=== PATIENT | female | born 1985 | race Caucasian/White ===

== ENCOUNTER 2023-04-23 10:49 | Emergency (ER) | payer OTHER ==
[2023-04-23 10:53] VITALS: BMI 24.4
[2023-04-23] MEDS ORDERED: ADENOSINE 6 MG/2 ML VIAL IVPUSH ONE ×2 (11:03→11:20)
[2023-04-23] MEDS ORDERED: SODIUM CHLORIDE 0.9% 500 ML INFUS.BAG IV ONE (11:17)
[2023-04-23 13:29] LABS: BASO % 0.8 % (0-2.0); EOS % 0.9 % (0-4.5); HEMATOCRIT 43.3 % (32.4-45.2); HEMOGLOBIN 14.5 GM/dL (10.7-15.3); LYMPH % 42.4 % (8-40); MCH 31.9 pg (25.7-33.7); MCHC 33.4 g/dl (32.0-36.0); MEAN CELL VOLUME 95.4 fl (80-96); MEAN PLT VOLUME 11.3 fl (7.5-11.1); NEUT % 47.9 % (42.8-82.8); PLATELET COUNT 236 10^3/uL (134-434); RBC 4.54 M/mm3 (3.60-5.2); RDW 13.1 % (11.6-15.6); WHITE BLOOD COUNT 6.6 K/mm3 (4.0-10.0)
[2023-04-23] MEDS ORDERED: metoPROLOL SUCCINATE 25 MG TAB.SR.24H (FP) PO ONE ×2 (13:49→13:59)
[2023-04-23 13:54] LABS: POTASSIUM 4.3 mmol/L (3.5-5.1)
[2023-04-23 13:55] LABS: CALCIUM 9.5 mg/dL (8.5-10.1)
[2023-04-23 13:57] LABS: ALBUMIN 4.2 g/dl (3.4-5.0); BLOOD UREA NITROGEN 16.8 mg/dL (7-18)
[2023-04-23 14:02] LABS: BILIRUBIN,TOTAL 1.6 mg/dL (0.2-1); TOT PROT 7.8 g/dl (6.4-8.2)
[2023-04-23 14:36] VITALS: BP 120/86; PULSE 67; RESP 18; TEMP 98.6
== END 2023-04-23 14:51 | disposition home or self-care (01) ==
LOC: JER 10:49
PROC: 3E033GC Introduction of Other Therapeutic Substance into Peripheral Vein, Percutaneous Approach (ICD-10-PCS; principal; 2023-04-23)
DX: I47.1 Supraventricular tachycardia (principal); R07.9 Chest pain, unspecified; R00.2 Palpitations
CPT/HCPCS: 36415; 71045-TC-FY; 80053; 84484; 84703; 85025; 93005; 93010; 99291